=== PATIENT | female | born 1980 | race Two or more races ===

== ENCOUNTER 2019-06-29 12:42 | Emergency (ER) | payer SELFPAY ==
[~2019-06-29] VITALS: Ht 160 cm; Wt 67.8 kg
[2019-06-29 13:20] LABS: BASOPHILS # (AUTO) 0.04 x10^3/uL (0-0.1); BASOPHILS % (AUTO) 1 % (0-1); EOSINOPHILS # (AUTO) 0.05 x10^3/uL (0-0.4); EOSINOPHILS % (AUTO) 1 % (1-7); LYMPHOCYTES # (AUTO) 2.01 x10^3/uL (1-3.4); LYMPHOCYTES % (AUTO) 25 % (22-44); MD NO; MEAN CORPUSCULAR HEMOGLOBIN 30.6 pg (27.0-34.8); MEAN CORPUSCULAR HGB CONC 33.4 g/dL (32.4-35.8); MEAN CORPUSCULAR VOLUME 91.5 fL (80-100); MEAN PLATELET VOLUME 8.6 fL (7.4-10.4); MONOCYTES # (AUTO) 0.35 x10^3/uL (0.2-0.8); MONOCYTES % (AUTO) 4 % (2-9); NEUTROPHILS # (AUTO) 5.67 x10^3/uL (1.8-6.8); NEUTROPHILS % (AUTO) 70 % (42-75); PLATELET COUNT 276 x10^3/uL (130-400); RED BLOOD COUNT 4.64 x10^6/uL (3.82-5.3)
[2019-06-29 13:30] LABS: ANION GAP 5 mmol/L (5-15); CALCIUM 9.1 mg/dL (8.5-10.1); CHLORIDE 108 mmol/L (98-107); CREATININE 0.92 mg/dL (0.55-1.02)
--- NOTE | 2019-06-29 14:51 | NUR ---
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
[2019-06-29 15:03] VITALS: BP 123/78
--- NOTE | 2019-06-29 15:05 | NUR ---
PT PRESENTING TO ER FOR R LOWER QUAD PAIN THAT RADIATES TO BACK WITH INCREASE URINATION, NO PAIN WITH URINATION. PT ALSO STS DECREASED APPETITE. MONTHS AGO HAD URINATION PAIN AND DISCHARGE BUT HAS SINCE RESOLVED. CONNECTED TO MONITORING, VSS. UA COLLECTED AND SENT TO LAB. CALL LIGHT WITHIN REACH. AWAITING MD ORDERS AND RECHECK AT THIS TIME. FAMILY WITH PT NOW
[2019-06-29 15:14] LABS: MICROSCOPIC NOT IND
[2019-06-29 15:27] LABS: CULTURE INDICATED? NO
--- NOTE | 2019-06-29 15:31 | NUR ---
ALL RESULTS BACK AT THIS TIME, CHART UP FOR RECHECK
== END 2019-06-29 15:59 | disposition home or self-care (01) ==
LOC: ED 15:48
DX: N83.202 Unspecified ovarian cyst, left side (principal)
CPT/HCPCS: 36415; 76830; 80048; 81003; 82040; 84703; 85025; 99284